=== PATIENT | female | born 1940 | race Caucasian/White ===

== ENCOUNTER 2018-06-08 14:09 | Inpatient (IN) | payer MEDICARE, MEDICAID ==
[~2018-06-08] VITALS: Ht 165.1 cm; Wt 59.4 kg
[2018-06-08] MEDS ORDERED: ATOR10TA PO (14:20)
[2018-06-08] MEDS ORDERED: MIRT15TA PO (14:20)
[2018-06-08] MEDS ORDERED: GLYC-22 RC (14:20)
[2018-06-08] MEDS ORDERED: FURO-145 PO (14:20)
[2018-06-08] MEDS ORDERED: OXCA150T5 PO (14:20)
[2018-06-08] MEDS ORDERED: DOCU-141 PO (14:20)
[2018-06-08] MEDS ORDERED: LACT10SO PO (14:20)
[2018-06-08] MEDS ORDERED: LEVO75TA7 PO (14:20)
[2018-06-08] MEDS ORDERED: SERT25TA PO (14:20)
[2018-06-08] MEDS ORDERED: BISA10SU8 RC (14:20)
[2018-06-08] MEDS ORDERED: QUET25TA PO ×2 (14:20)
[2018-06-08] MEDS ORDERED: ACET-868 PO (14:20)
[2018-06-08] MEDS ORDERED: CHOL100044 PO (14:20)
[2018-06-08] MEDS ORDERED: MEMA10TA PO (14:20)
[2018-06-08 14:25] LABS: BASOPHILS # (AUTO) 0.1 /CMM (0.0-0.2); BASOPHILS % (AUTO) 1.6 % (0.0-2.0); EOSINOPHILS % (AUTO) 2.2 % (0.0-6.0); HEMATOCRIT 30 % (33-45); HEMOGLOBIN 9.3 g/dL (11.5-14.8); MEAN CORPUSCULAR HEMOGLOBIN 25 PG (26.0-33.0); MEAN CORPUSCULAR HGB CONC 32 g/dl (31.0-36.0); MEAN CORPUSCULAR VOLUME 80 fL (82-100); MONOCYTES # (AUTO) 0.7 /CMM (0.1-1.30); MONOCYTES % (AUTO) 9.2 % (2.0-12.0); NEUTROPHILS # (AUTO) 5.3 /CMM (1.8-8.9); PLATELET COUNT (AUTO) 193 /CMM (150-450); RDW COEFFICIENT OF VARIATION 15.4 (11.5-15.0); RED BLOOD CELL COUNT(AUTO) 3.69 MIL/uL (4.0-5.2); WHITE BLOOD COUNT (AUTO) 7.3 K/uL (4.3-11.0)
[2018-06-08 14:35] LABS: CALCIUM, SERUM 8.9 mg/dL (8.5-10.1); CARBON DIOXIDE 29 mmol/L (21-32); CHLORIDE 105 mmol/L (98-107); CREATININE 0.7 mg/dL (0.6-1.3); GLUCOSE 119 mg/dL (74-106); POTASSIUM 3.6 mmol/L (3.5-5.1); SODIUM SERUM 142 mmol/L (136-145); UREA NITROGEN, BLOOD 19 mg/dL (7-18)
[2018-06-08 14:41] LABS: ALANINE AMINOTRANSFERASE 15 U/L (12-78); ALBUMIN 3.2 g/dL (3.4-5.0); ALCOHOL, BLOOD < 3 mg/dL (0-0); ALKALINE PHOSPHATASE 116 U/L (46-116); ASPARTATE AMINOTRANSFERASE 20 U/L (15-37); BILIRUBIN,DIRECT 0.1 mg/dL (0.0-0.2); BILIRUBIN,TOTAL 0.2 mg/dL (0.2-1.0); TOTAL PROTEIN, SERUM 7.6 g/dL (6.4-8.2)
[2018-06-08 14:43] LABS: ACETAMINOPHEN 0 ug/ml (10-30)
[2018-06-08] MEDS ORDERED: OLANZAPINE 10 MG VIAL IM ONE ×2 (14:44→15:00)
--- NOTE | 2018-06-08 14:46 | NUR ---
CALLED FOR GPS
--- NOTE | 2018-06-08 14:57 | NUR ---
BIB [facility] HERE FOR PSYCH EVAL FOR INCREASING AGGRESSION. SEEN & EVAL'D BY DR. TAPIA. PT HITTING, SCREAMING. PLACED ON 2 WY HARD RESTRAINTS ON BILL WRISTS PER ERMD ORDER, SKIN INTACT WITH GOOD CSM. MEDICATED PER ERMD ORDER. PLACED ON MONITOR, NSR, NO ECTOPY NOTED. AWAITING ADMISSION TO PSYCH UNIT.
--- NOTE | 2018-06-08 15:12 | NUR ---
CALLED [facility]ZA [phone] SHE SAID ETA IS 60 MINS
[2018-06-08 15:26] LABS: LYMPHOCYTES % (MANUAL) 11 % (16-48); MONOCYTES % (MANUAL) 8 % (0-11.0); NEUTROPHILS % (MANUAL) 79 (42-76); REACTIVE LYMPHOCYTES 2 % (0-0)
--- NOTE | 2018-06-08 15:30 | NUR ---
PT CALM, RESTING, BILL WRIST SKIN INTACT WITH GOOD CSM, NAD NOTED @ THIS TIME.
[2018-06-08] MEDS ORDERED: LACTULOSE 10 G/15 ML UDC (PYXIS) PO PRN (16:30)
[2018-06-08] MEDS ORDERED: BISACODYL SUPP (10 MG) 10 MG/SUPP.RECT SUPP.RECT RC PRN (16:30)
[2018-06-08] MEDS: FUROSEMIDE 20 MG TABLET PO SCH (18:00)
[2018-06-08] MEDS: MEMANTINE HCL 5 MG TABLET PO SCH (18:00)
--- NOTE | 2018-06-08 18:09 | NUR ---
GPS/RN RECEIVED PT FROM ER ON 5149 HOLD FOR GD AND DTO. [facility] SHE WAS AGGRESSIVE AND REFUSING CARE. ADMITTING ORDERS FROM DR ASCENCIO RECEIVED AND CARRIED OUT. DR BURGESS AWARE OF ADMISSION AND RECONCILED THE HOME MEDS ALREADY. PT IS RESISTIVE TO CARE, REFUSED MEDS, SKIN ASSESSMENT USING PROFANE LANGUAGE.
--- NOTE | 2018-06-08 18:28 | NUR ---
DR. ASCENCIO MADE AWARE OF THE ADMISSION AND WITH ORDERS.
[2018-06-08] MEDS ORDERED: ACETAMINOPHEN 325 MG TABLET PO PRN (18:30)
[2018-06-08] MEDS ORDERED: QUETIAPINE FUMARATE 25 MG TABLET PO PRN (18:30)
[2018-06-08] MEDS: OXCARBAZEPINE 150 MG TABLET PO SCH (21:00)
[2018-06-08] MEDS: DOCUSATE SODIUM 100 MG CAPSULE PO SCH (21:00)
[2018-06-08] MEDS: ATORVASTATIN 10 MG TABLET PO SCH (22:00)
[2018-06-09] MEDS: LEVOTHYROXINE SODIUM 75 MCG TABLET PO SCH (07:30)
[2018-06-09 08:47] VITALS: BP 120/58
[2018-06-09] MEDS: CHOLECALCIFEROL 1,000 UNIT TABLET (VIT D3) PO SCH (09:00)
[2018-06-09] MEDS: MEMANTINE HCL 5 MG TABLET PO SCH ×2 (09:00→17:00)
[2018-06-09] MEDS: DOCUSATE SODIUM 100 MG CAPSULE PO SCH ×2 (09:00→21:00)
[2018-06-09] MEDS: OXCARBAZEPINE 150 MG TABLET PO SCH ×2 (13:00→21:00)
[2018-06-09 16:00] VITALS: BP 130/61
[2018-06-09] MEDS: OLANZAPINE 5 MG/TAB.RAPDIS PO SCH (17:30)
[2018-06-09] MEDS: FUROSEMIDE 20 MG TABLET PO SCH (18:00)
[2018-06-09] MEDS: DIVALPROEX SODIUM 125 MG CAP.SPRINK PO SCH (21:00)
[2018-06-09] MEDS: ATORVASTATIN 10 MG TABLET PO SCH (21:56)
[2018-06-09] MEDS: MIRTAZAPINE 15 MG TABLET PO SCH (21:57)
--- NOTE | 2018-06-09 23:49 | NUR ---
GPS RN NOTES, PT. REFUSED ALL NIGHT MEDS, AND REFUSED VITAL SIGNS ,ENCOURAGED , EXPLIANED RISKS AND BENEFITS STILL REFUSED, PT. BEHAVIOR VERY UNCOOPERTIVE , WILL CONTINUE TO ENCOURAGED TO COMPLY WITH MD REGIMEN.
[2018-06-10] MEDS: OXCARBAZEPINE 150 MG TABLET PO SCH ×3 (05:00→21:00)
[2018-06-10] MEDS: LEVOTHYROXINE SODIUM 75 MCG TABLET PO SCH (07:30)
[2018-06-10] MEDS: DOCUSATE SODIUM 100 MG CAPSULE PO SCH ×2 (08:40→21:00)
[2018-06-10] MEDS: DIVALPROEX SODIUM 125 MG CAP.SPRINK PO SCH ×2 (08:40→21:00)
[2018-06-10] MEDS: OLANZAPINE 5 MG/TAB.RAPDIS PO SCH ×2 (08:41→17:00)
[2018-06-10] MEDS: CHOLECALCIFEROL 1,000 UNIT TABLET (VIT D3) PO SCH (08:41)
[2018-06-10] MEDS: MEMANTINE HCL 5 MG TABLET PO SCH ×2 (08:41→17:00)
--- NOTE | 2018-06-10 12:30 | NUR ---
GPS/RN PATIENT IS ADAMANTLY REFUSING CARE, SPITTING, CURSING AND COMBATIVE WITH STAFF.WILL CONTINUE TO ENCOURAGE TO ALLOW STAFF TO ASSIST WITH CARE.
--- NOTE | 2018-06-10 13:30 | NUR ---
GPS/RN PATIENT REFUSED ALL A.M. MEDICATION X 3, EXPLAINED RISKS AND BENEFITS, WILL CONTINUE TO ENCOURAGE TO COMPLY WITH MD REGIMEN. Addendum: 06/10/18 at 1333 by ROBB AMEZQUITA RN 0900 MEDICATIONS.
--- NOTE | 2018-06-10 13:33 | NUR ---
GPS/RN PATIENT ADAMANTLY REFUSED TRILEPTAL 450 MG X 3, EXPLAINED RISKS AND BENEFITS, WILL CONTINUE TO ENCOURAGE TO COMPLY WITH MD REGIMEN.
[2018-06-10 16:00] VITALS: BP 131/58
--- NOTE | 2018-06-10 16:21 | NUR ---
Initial Discharge Plan: Pt currently came from [facility] located at [address] [place] [address]; ([phone]). Per pt, she would like to return there upon discharge. SW will work with the pt and the MD regarding appropriate discharge planning. SW will form a safe and proper discharge.
--- NOTE | 2018-06-10 16:22 | NUR ---
MALLY called the pt's daughter, Avril Paniagua ([phone]), and left a voicemail stating that the initial discharge plan needs to be discussed.
[2018-06-10] MEDS: FUROSEMIDE 20 MG TABLET PO SCH (18:00)
--- NOTE | 2018-06-10 18:06 | NUR ---
GPS/RN PATIENT REFUSED ALL 1700,1800 MEDICATION X 3, EXPLAINED RISKS AND BENEFITS, WILL CONTINUE TO ENCOURAGE TO COMPLY WITH MD REGIMEN.
--- NOTE | 2018-06-10 18:15 | NUR ---
GPS/RN PATIENT NOTED WITH L HAND SKIN TEAR, REFUSED PICTURE.
--- NOTE | 2018-06-10 19:00 | NUR ---
GPS/FINISHING MACHINE OPERATOR AUTOMATIC CONSULT ORDERED FOR L HAND SKIN TEAR.
[2018-06-10] MEDS: ATORVASTATIN 10 MG TABLET PO SCH (21:35)
[2018-06-10] MEDS: MIRTAZAPINE 15 MG TABLET PO SCH (21:35)
--- NOTE | 2018-06-10 21:35 | NUR ---
GPS-RN PATIENT REFUSED ALL PO SCHEDULED MEDS. DESPITE OF EDUCATION AND ENCOURAGEMENT PROVIDED. PATIENT STATED I DON'T NEED ANY MEDICATION. OFFERED X3, PATIENT STILL REFUSED.
[2018-06-11] MEDS: OXCARBAZEPINE 150 MG TABLET PO SCH ×2 (05:00→13:00)
--- NOTE | 2018-06-11 05:26 | NUR ---
GPS-RN PATIENT REFUSED SCHEDULED MED TRILEPTAL. DESPITE OF EDUCATION AND ENCOURAGEMENT PROVIDED. OFFERED X3, PATIENT STILL REFUSED.
[2018-06-11] MEDS: LEVOTHYROXINE SODIUM 75 MCG TABLET PO SCH (07:30)
[2018-06-11] MEDS: OLANZAPINE 5 MG/TAB.RAPDIS PO SCH ×2 (08:20→17:00)
[2018-06-11] MEDS: CHOLECALCIFEROL 1,000 UNIT TABLET (VIT D3) PO SCH (08:20)
[2018-06-11] MEDS: DIVALPROEX SODIUM 125 MG CAP.SPRINK PO SCH ×2 (08:20→21:00)
[2018-06-11] MEDS: DOCUSATE SODIUM 100 MG CAPSULE PO SCH ×2 (08:20→21:00)
[2018-06-11] MEDS: MEMANTINE HCL 5 MG TABLET PO SCH ×2 (08:20→17:00)
--- NOTE | 2018-06-11 09:58 | NUR ---
WOUND CARE CONSULT: PT PRESENTS WITH LEFT HAND SKIN TEAR. PT VERY ANGRY. RECOMMENDATIONS MADE FOR WOUND CARE AND DISCUSSED WITH NURSING STAFF. WILL SEE PRN.
[2018-06-11] MEDS: BACITRACIN/POLYMYXIN B 15 GM TUBE TP SCH (10:30)
[2018-06-11] MEDS: FUROSEMIDE 20 MG TABLET PO SCH (17:59)
--- NOTE | 2018-06-11 21:29 | NUR ---
GPS-RN PATIENT REFUSED ALL PO SCHEDULED MEDS. DESPITE OF EDUCATION AND ENCOURAGEMENT PROVIDED. PATIENT STATED I DON'T NEED ANY MEDICATION, I AM DOING FINE. OFFERED X3, PATIENT STILL REFUSED.
[2018-06-11] MEDS: ATORVASTATIN 10 MG TABLET PO SCH (21:31)
[2018-06-11] MEDS: MIRTAZAPINE 15 MG TABLET PO SCH (21:31)
[2018-06-11 22:49] LABS: CHOLESTEROL 142 mg/dL (<200); HDL CHOLESTEROL 51 mg/dL (40-60); LDL 79 mg/dL (0-99); TRIGLYCERIDES 56 mg/dL (30-150)
[2018-06-11 23:01] LABS: ALANINE AMINOTRANSFERASE 16 U/L (12-78); ALBUMIN 3.3 g/dL (3.4-5.0); ALKALINE PHOSPHATASE 102 U/L (46-116); ASPARTATE AMINOTRANSFERASE 18 U/L (15-37); BILIRUBIN,TOTAL 0.2 mg/dL (0.2-1.0); CALCIUM, SERUM 9.1 mg/dL (8.5-10.1); CARBON DIOXIDE 26 mmol/L (21-32); CHLORIDE 108 mmol/L (98-107); CREATININE 0.7 mg/dL (0.6-1.3); GLUCOSE 97 mg/dL (74-106); POTASSIUM 4.9 mmol/L (3.5-5.1); SODIUM SERUM 143 mmol/L (136-145); TOTAL PROTEIN, SERUM 7.6 g/dL (6.4-8.2); UREA NITROGEN, BLOOD 28 mg/dL (7-18)
[2018-06-12] MEDS: LEVOTHYROXINE SODIUM 75 MCG TABLET PO SCH (07:30)
[2018-06-12] MEDS: DOCUSATE SODIUM 100 MG CAPSULE PO SCH ×2 (09:00→21:00)
[2018-06-12] MEDS: CHOLECALCIFEROL 1,000 UNIT TABLET (VIT D3) PO SCH (09:00)
[2018-06-12] MEDS: DIVALPROEX SODIUM 125 MG CAP.SPRINK PO SCH ×3 (09:00→21:00)
[2018-06-12] MEDS: OLANZAPINE 5 MG/TAB.RAPDIS PO SCH ×2 (09:00→17:00)
[2018-06-12] MEDS: MEMANTINE HCL 5 MG TABLET PO SCH ×2 (09:00→17:00)
[2018-06-12] MEDS: BACITRACIN/POLYMYXIN B 15 GM TUBE TP SCH (09:00)
--- NOTE | 2018-06-12 10:20 | NUR ---
GPS RN NOTE: RECEIVED PATIENT IN ROOM,ALERT AND ORIENTED X1-2,VERBALLY RESPONSIVE,S AGITATED,REFUSED MEDICATION,REFUSED VS, REFUSED TO TAKE A SHOWER , AWARE ASHLEY FILED. FALL PRECAUTIONS IMPLEMENTED NO DISTRESS NOTED , WILL CONTINUE TO MONITOR Q 15 MIN FOR SAFETY AND BEHAVIOR.
--- NOTE | 2018-06-12 11:59 | NUR ---
[facility][phone][facility] and spoke to Suzy from administration. Suzy stated that she spoke to her advanced nursing professor and that the pt can return to their facility when she is cleared for discharge. MALLY stated that she would call back once there is a discharge date.
--- NOTE | 2018-06-12 12:02 | NUR ---
MALLY called the psychiatrist, Dr. Carlson ([phone]) and informed him that the pt can return to her previous facility when he thinks that she is ready for discharge.
--- NOTE | 2018-06-12 12:04 | NUR ---
MALLY called the pt's daughter, Avril Paniagua ([phone]), and left a voicemail stating that the pt will return to [facility] when she is cleared for discharge.
[2018-06-12] MEDS: FUROSEMIDE 20 MG TABLET PO SCH (17:52)
[2018-06-12] MEDS: MIRTAZAPINE 15 MG TABLET PO SCH (21:09)
[2018-06-12] MEDS: ATORVASTATIN 10 MG TABLET PO SCH (21:09)
--- NOTE | 2018-06-12 21:09 | NUR ---
GPS-RN PATIENT REFUSED ALL PO SCHEDULED MEDS. DESPITE OF EDUCATION AND ENCOURAGEMENT PROVIDED. PATIENT STATED I DON'T NEED ANY MEDICATION. OFFERED X3, PATIENT STILL REFUSED.
[2018-06-13] MEDS: LEVOTHYROXINE SODIUM 75 MCG TABLET PO SCH (07:30)
[2018-06-13] MEDS: DOCUSATE SODIUM 100 MG CAPSULE PO SCH ×2 (09:00→21:00)
[2018-06-13] MEDS: BACITRACIN/POLYMYXIN B 15 GM TUBE TP SCH (09:00)
[2018-06-13] MEDS: MEMANTINE HCL 5 MG TABLET PO SCH ×2 (09:00→16:33)
[2018-06-13] MEDS: OLANZAPINE 5 MG/TAB.RAPDIS PO SCH ×2 (09:00→16:33)
[2018-06-13] MEDS: CHOLECALCIFEROL 1,000 UNIT TABLET (VIT D3) PO SCH (09:00)
[2018-06-13] MEDS: DIVALPROEX SODIUM 125 MG CAP.SPRINK PO SCH ×3 (09:00→21:00)
--- NOTE | 2018-06-13 09:00 | NUR ---
GPS/RN PATIENT REFUSED ALL A.M. MEDICATION X 3, EXPLAINED RISKS AND BENEFITS, WILL CONTINUE TO ENCOURAGE TO COMPLY WITH MD REGIMEN.
--- NOTE | 2018-06-13 10:00 | NUR ---
GPS/RN PATIENT REFUSED WOUND TREATMENT X 3, EXPLAINED RISKS AND BENEFITS, WILL CONTINUE TO ENCOURAGE TO COMPLY WITH MD REGIMEN AND ALLOW STAFF TO PROVIDE CARE.
--- NOTE | 2018-06-13 13:30 | NUR ---
GPS/RN PATIENT REFUSED DEPAKOTE 125MG X 3, EXPLAINED RISKS AND BENEFITS, WILL CONTINUE TO ENCOURAGE TO COMPLY WITH MD REGIMEN.
--- NOTE | 2018-06-13 15:21 | NUR ---
PT. REFUSED FOR V/S CHECKED, EXPLAINED ON THE IMPORTANCE AND STILL REFUSING AND SAID I DON'T NEED IT. DR. ASCENCIO MADE AWARE OF THE PC HEARING AND REISE HEARING SCHEDULED FOR TOMORROW (06/14/18) AT 1130 AM.
[2018-06-13 17:20] LABS: BASOPHILS % (AUTO) 0.3 % (0.0-2.0); EOSINOPHILS % (AUTO) 1.8 % (0.0-6.0); HEMATOCRIT 30 % (33-45); HEMOGLOBIN 9.3 g/dL (11.5-14.8); LYMPHOCYTES # (AUTO) 1.5 /CMM (0.8-4.8); LYMPHOCYTES % (AUTO) 17.4 % (20.0-44.0); MEAN CORPUSCULAR HEMOGLOBIN 25 PG (26.0-33.0); MEAN CORPUSCULAR HGB CONC 31 g/dl (31.0-36.0); MEAN CORPUSCULAR VOLUME 81 fL (82-100); MONOCYTES # (AUTO) 0.8 /CMM (0.1-1.30); MONOCYTES % (AUTO) 9.4 % (2.0-12.0); NEUTROPHILS # (AUTO) 6.1 /CMM (1.8-8.9); NEUTROPHILS % (AUTO) 71.1 % (43.0-81.0); PLATELET COUNT (AUTO) 214 /CMM (150-450); RDW COEFFICIENT OF VARIATION 16.8 (11.5-15.0); WHITE BLOOD COUNT (AUTO) 8.6 K/uL (4.3-11.0)
[2018-06-13] MEDS: FUROSEMIDE 20 MG TABLET PO SCH (17:30)
[2018-06-13 17:36] LABS: CALCIUM, SERUM 8.8 mg/dL (8.5-10.1); CARBON DIOXIDE 30 mmol/L (21-32); CHLORIDE 107 mmol/L (98-107); CREATININE 0.7 mg/dL (0.6-1.3); GLUCOSE 141 mg/dL (74-106); POTASSIUM 3.6 mmol/L (3.5-5.1); SODIUM SERUM 141 mmol/L (136-145); UREA NITROGEN, BLOOD 27 mg/dL (7-18)
--- NOTE | 2018-06-13 17:36 | NUR ---
GPS/RN PATIENT REFUSED ALL MEDICATION THROUGHOUT SHIFT. STATED THAT " I DON'T TAKE MEDICATION", EXPLAINED RISKS AND BENEFITS, WILL CONTINUE TO ENCOURAGE TO COMPLY WITH MD REGIMEN.
--- NOTE | 2018-06-13 20:00 | NUR ---
GPS/AGRICULTURAL ENGINEERING TECHNOLOGIST NOTES: PT. REFUSED HS VS. OFFERED 3X. EXPLAINED RISK AND BENEFITS. PT. STILL REFUSED. NO DISTRESS NOTED. WILL CONTINUE TO MONITOR.
[2018-06-13] MEDS: MIRTAZAPINE 15 MG TABLET PO SCH (21:24)
[2018-06-13] MEDS: ATORVASTATIN 10 MG TABLET PO SCH (21:24)
--- NOTE | 2018-06-13 21:24 | NUR ---
GPS/TELECOMMUNICATIONS CONSULTANT NOTES: PT. REFUSED ALL HS MEDS. OFFERED 3X. EXPLAINED RISK AND BENEFITS. PT. STILL REFUSED.
[2018-06-14 01:40] LABS: CHOLESTEROL 147 mg/dL (<200); HDL CHOLESTEROL 47 mg/dL (40-60); LDL 84 mg/dL (0-99); THYROID STIMULATING HORMONE 5.075 uIU/mL (0.358-3.74); TRIGLYCERIDES 107 mg/dL (30-150)
--- NOTE | 2018-06-14 06:49 | NUR ---
GPS/FERTILIZER PROCESSING SUPERVISOR NOTES: NOTICED FOUL SMELLING URINE. CALLED DR. LANE. ORDERED UA.
[2018-06-14] MEDS: LEVOTHYROXINE SODIUM 75 MCG TABLET PO SCH (07:30)
[2018-06-14] MEDS: DOCUSATE SODIUM 100 MG CAPSULE PO SCH ×2 (09:00→21:38)
[2018-06-14] MEDS: OLANZAPINE 5 MG/TAB.RAPDIS PO SCH ×2 (09:00→17:00)
[2018-06-14] MEDS: BACITRACIN/POLYMYXIN B 15 GM TUBE TP SCH (09:00)
[2018-06-14] MEDS: MEMANTINE HCL 5 MG TABLET PO SCH ×2 (09:00→17:00)
[2018-06-14] MEDS: CHOLECALCIFEROL 1,000 UNIT TABLET (VIT D3) PO SCH (09:00)
[2018-06-14] MEDS: DIVALPROEX SODIUM 125 MG CAP.SPRINK PO SCH ×3 (09:00→21:38)
--- NOTE | 2018-06-14 09:57 | NUR ---
GPS/RN-NOTES PATIENT REFUSED ALL 0900AM MEDICATIONS DESPITE ENCOURAGEMENT. PATIENT GETS ANGRY AND YELLS AT THE RESCUE WORKER. OFFERED X3.
--- NOTE | 2018-06-14 10:30 | NUR ---
Pt's stepdashante, Jo Ann ([phone]), called the SW and asked for an update regarding a discharge date to which the SW stated that she would inform her about when she has one. Addendum: 06/14/18 at 1032 by SHAY BAL Avril
[2018-06-14] MEDS ORDERED: OLANZAPINE 10 MG VIAL IM PRN ×2 (11:30→12:00)
[2018-06-14] MEDS: OLANZAPINE 10 MG VIAL IM PRN ×2 (12:31→18:06)
--- NOTE | 2018-06-14 12:40 | NUR ---
GPS/RN-NOTES OFFERED ZYPREXA 2.5MG P.O FOR THE LAST TIME BUT PATIENT STATED" I WILL NOT TAKE ANY MEDICATIONS AT ALL". EXPLAINED THAT FOR EVERY REFUSAL OF THE PILL THE TRAINING AND DEVELOPMENT PROFESSIONAL WILL GIVE ZYPREXA 2.5MG IM. PATIENT START YELLING USING FOUL LANGUAGES. PATIENT WAS ALREADY RIESE. ZYPREXA 2.5MG IM GIVEN ORDERED.
[2018-06-14] MEDS: FUROSEMIDE 20 MG TABLET PO SCH (18:00)
--- NOTE | 2018-06-14 18:16 | NUR ---
GPS/RN-NOTES PATIENT REFUSED ALL 1700 MEDICATIONS INCLUDING ZYPREXA 2.5MG P.O PATIENT STATED" I WILL NOT TAKE ANY PILLS". ZYPREXA 2.5MG IM. GIVEN ORDERED.
--- NOTE | 2018-06-14 18:31 | NUR ---
GPS/RN-NOTES NO URINE COLLECTED THIS SHIFT ,PATIENT WAS UNCOOPERATIVE .WILL ENDORSE TO THE INCOMING NURSE FOR THE URINE COLLECTION AND THE CONTINUITY OF CARE.
[2018-06-14] MEDS: MIRTAZAPINE 15 MG TABLET PO SCH (21:38)
[2018-06-14] MEDS: ATORVASTATIN 10 MG TABLET PO SCH (21:38)
[2018-06-15] MEDS: LEVOTHYROXINE SODIUM 75 MCG TABLET PO SCH (07:30)
[2018-06-15] MEDS: CHOLECALCIFEROL 1,000 UNIT TABLET (VIT D3) PO SCH (09:00)
[2018-06-15] MEDS: MEMANTINE HCL 5 MG TABLET PO SCH ×2 (09:00→17:00)
[2018-06-15] MEDS: DOCUSATE SODIUM 100 MG CAPSULE PO SCH ×2 (09:00→21:00)
[2018-06-15] MEDS: DIVALPROEX SODIUM 125 MG CAP.SPRINK PO SCH ×3 (09:00→21:00)
[2018-06-15] MEDS: OLANZAPINE 5 MG/TAB.RAPDIS PO SCH ×3 (09:00→20:26)
[2018-06-15] MEDS: BACITRACIN/POLYMYXIN B 15 GM TUBE TP SCH (09:00)
[2018-06-15] MEDS: OLANZAPINE 10 MG VIAL IM PRN ×2 (09:20→17:34)
--- NOTE | 2018-06-15 09:47 | NUR ---
GPS/RN-NOTES PATIENT REFUSED ALL 0900 AM MEDICATIONS INCLUDING ZYPREXA 2.5MG P.O. PATIENT SCREAM AND YELLS WITH THE ELEMENTARY EDUCATION TUTOR. PATIENT STATED" GET OUT,I WILL NOT TAKE MEDICATIONS OR PILLS". ZYPREXA 2.5MG IM GIVEN ORDERED.
--- NOTE | 2018-06-15 10:00 | NUR ---
GPS/RN-NOTES MAYTE SLATER MADE AWARE OF PATIENT REFUSAL OF MEDICATIONS. REFUSE TO GIVE URINE SPECIMEN.
[2018-06-15] MEDS: FUROSEMIDE 20 MG TABLET PO SCH (17:36)
--- NOTE | 2018-06-15 17:36 | NUR ---
GPS/RN-NOTES PATIENT REFUSED ALL 1700 MEDICATIONS INCLUDING ZYPREXA 2.5MG P.O. ZYPREXA 2.5MG IM. GIVEN ORDERED.
--- NOTE | 2018-06-15 19:15 | NUR ---
RN NOTES RECEIVED PT IN BED, CONFUSED AND DISORGANIZED, VERBALLY RESPONSIVE WITH NO SOB, BREATHING EVEN AND UNLABORED AND IN NO ACUTE DISTRESS. ALL PATIENT'S NEEDS ATTENDED TO AT THIS TIME. WILL CONTINUE TO MONITOR PT.
[2018-06-15] MEDS ORDERED: OLANZAPINE 10 MG VIAL IM PRN (19:30)
[2018-06-15 20:00] VITALS: BP 102/96
--- NOTE | 2018-06-15 20:26 | NUR ---
RN NOTES PT SEEN AND EXAMINED BY DR. ASCENCIO WITH NEW ZYPREXA ORDERS. PER MD, DO NOT ADMINISTER ZYPREXA @ 2100 TONIGHT AND START ZYPREXA IN THE AM PT ALREADY RECEIVED 2 DOSES TODAY.
[2018-06-15] MEDS: ATORVASTATIN 10 MG TABLET PO SCH (21:18)
[2018-06-15] MEDS: MIRTAZAPINE 15 MG TABLET PO SCH (21:18)
[2018-06-16] MEDS: LEVOTHYROXINE SODIUM 75 MCG TABLET PO SCH (07:30)
[2018-06-16] MEDS: OLANZAPINE 5 MG/TAB.RAPDIS PO SCH ×3 (08:45→21:00)
[2018-06-16] MEDS: DIVALPROEX SODIUM 125 MG CAP.SPRINK PO SCH ×4 (08:45→21:00)
[2018-06-16] MEDS: BACITRACIN/POLYMYXIN B 15 GM TUBE TP SCH (08:46)
[2018-06-16] MEDS: DOCUSATE SODIUM 100 MG CAPSULE PO SCH ×3 (08:46→21:00)
[2018-06-16] MEDS: MEMANTINE HCL 5 MG TABLET PO SCH ×2 (08:46→16:21)
[2018-06-16] MEDS: CHOLECALCIFEROL 1,000 UNIT TABLET (VIT D3) PO SCH (08:46)
[2018-06-16] MEDS: Z GUARD REMEDY 2 OZ OINT TP SCH (12:09)
[2018-06-16 16:06] VITALS: BP 103/59
[2018-06-16] MEDS: FUROSEMIDE 20 MG TABLET PO SCH (18:11)
[2018-06-16 19:46] VITALS: BP 98/51
[2018-06-16] MEDS: MIRTAZAPINE 15 MG TABLET PO SCH (22:00)
[2018-06-16] MEDS: ATORVASTATIN 10 MG TABLET PO SCH (22:00)
--- NOTE | 2018-06-16 22:00 | NUR ---
RN NOTES, PATIENT REFUSED ALL NIGHT MEDICATIONS, INCLUDING ZYPREXA PO, OFFERED 3X, EDUCATION PROVIDED REGARDING RISKS AND BENEFITS, AND STILL REFUSED, ZYPREXA IM ADMINISTERED ORDERED, WILL CONTINUE TO MONITOR CLOSELY.
[2018-06-17] MEDS: LEVOTHYROXINE SODIUM 75 MCG TABLET PO SCH (07:30)
[2018-06-17] MEDS: DOCUSATE SODIUM 100 MG CAPSULE PO SCH ×2 (08:44→21:00)
[2018-06-17] MEDS: DIVALPROEX SODIUM 125 MG CAP.SPRINK PO SCH ×3 (08:44→21:06)
[2018-06-17] MEDS: CHOLECALCIFEROL 1,000 UNIT TABLET (VIT D3) PO SCH (08:44)
[2018-06-17] MEDS: MEMANTINE HCL 5 MG TABLET PO SCH ×2 (08:44→16:03)
[2018-06-17] MEDS: OLANZAPINE 5 MG/TAB.RAPDIS PO SCH (08:46)
[2018-06-17] MEDS: BACITRACIN/POLYMYXIN B 15 GM TUBE TP SCH (08:53)
[2018-06-17] MEDS: Z GUARD REMEDY 2 OZ OINT TP SCH (08:54)
--- NOTE | 2018-06-17 10:37 | NUR ---
SW returned the pt's daughter's phone call, Avril Paniagua ([phone]), and discussed how the pt's is now entering hospice and whether or not the pt should know. The daughter stated that she wants the SW to let the psychiatrist know but wants to wait a bit longer before telling the pt.
[2018-06-17 16:00] VITALS: BP 107/61
[2018-06-17] MEDS: FUROSEMIDE 20 MG TABLET PO SCH (17:44)
[2018-06-17 20:49] VITALS: BP 100/48
[2018-06-17] MEDS ORDERED: OLANZAPINE 10 MG VIAL IM PRN (21:00)
[2018-06-17] MEDS: ATORVASTATIN 10 MG TABLET PO SCH (21:05)
[2018-06-17] MEDS: MIRTAZAPINE 15 MG TABLET PO SCH (21:06)
[2018-06-17] MEDS: OLANZAPINE 2.5 MG TABLET PO SCH (21:06)
[2018-06-18 07:47] LABS: CALCIUM, SERUM 8.9 mg/dL (8.5-10.1); CARBON DIOXIDE 28 mmol/L (21-32); CHLORIDE 105 mmol/L (98-107); CREATININE 0.6 mg/dL (0.6-1.3); GLUCOSE 92 mg/dL (74-106); POTASSIUM 3.6 mmol/L (3.5-5.1); SODIUM SERUM 143 mmol/L (136-145); UREA NITROGEN, BLOOD 27 mg/dL (7-18)
[2018-06-18 08:00] VITALS: BP 100/52
[2018-06-18] MEDS: MEMANTINE HCL 5 MG TABLET PO SCH ×2 (08:51→17:27)
[2018-06-18] MEDS: CHOLECALCIFEROL 1,000 UNIT TABLET (VIT D3) PO SCH (08:51)
[2018-06-18] MEDS: LEVOTHYROXINE SODIUM 75 MCG TABLET PO SCH (08:51)
[2018-06-18] MEDS: DOCUSATE SODIUM 100 MG CAPSULE PO SCH ×2 (08:51→21:25)
[2018-06-18] MEDS: DIVALPROEX SODIUM 125 MG CAP.SPRINK PO SCH ×3 (08:51→21:24)
[2018-06-18] MEDS: OLANZAPINE 5 MG/TAB.RAPDIS PO SCH (08:52)
[2018-06-18] MEDS: BACITRACIN/POLYMYXIN B 15 GM TUBE TP SCH (08:53)
[2018-06-18] MEDS: Z GUARD REMEDY 2 OZ OINT TP SCH (08:53)
[2018-06-18 16:00] VITALS: BP 138/65
[2018-06-18] MEDS: FUROSEMIDE 20 MG TABLET PO SCH (17:27)
[2018-06-18 20:10] VITALS: BP 122/65
[2018-06-18] MEDS: OLANZAPINE 2.5 MG TABLET PO SCH (21:24)
[2018-06-18] MEDS: ATORVASTATIN 10 MG TABLET PO SCH (21:25)
[2018-06-18] MEDS: MIRTAZAPINE 15 MG TABLET PO SCH (21:25)
[2018-06-19] MEDS: OLANZAPINE 5 MG/TAB.RAPDIS PO SCH (09:17)
[2018-06-19] MEDS: DIVALPROEX SODIUM 125 MG CAP.SPRINK PO SCH ×3 (09:17→21:21)
[2018-06-19] MEDS: MEMANTINE HCL 5 MG TABLET PO SCH ×2 (09:17→16:53)
[2018-06-19] MEDS: CHOLECALCIFEROL 1,000 UNIT TABLET (VIT D3) PO SCH (09:17)
[2018-06-19] MEDS: LEVOTHYROXINE SODIUM 75 MCG TABLET PO SCH (09:17)
[2018-06-19] MEDS: Z GUARD REMEDY 2 OZ OINT TP SCH (09:17)
[2018-06-19] MEDS: BACITRACIN/POLYMYXIN B 15 GM TUBE TP SCH (09:17)
[2018-06-19] MEDS: DOCUSATE SODIUM 100 MG CAPSULE PO SCH ×2 (09:17→21:21)
[2018-06-19 10:32] LABS: BASOPHILS % (AUTO) 0.2 % (0.0-2.0); EOSINOPHILS % (AUTO) 2.1 % (0.0-6.0); HEMATOCRIT 33 % (33-45); HEMOGLOBIN 9.9 g/dL (11.5-14.8); LYMPHOCYTES # (AUTO) 1.8 /CMM (0.8-4.8); LYMPHOCYTES % (AUTO) 22.4 % (20.0-44.0); MEAN CORPUSCULAR HEMOGLOBIN 24 PG (26.0-33.0); MEAN CORPUSCULAR HGB CONC 30 g/dl (31.0-36.0); MEAN CORPUSCULAR VOLUME 80 fL (82-100); MONOCYTES # (AUTO) 0.7 /CMM (0.1-1.30); MONOCYTES % (AUTO) 9.2 % (2.0-12.0); NEUTROPHILS # (AUTO) 5.3 /CMM (1.8-8.9); NEUTROPHILS % (AUTO) 66.1 % (43.0-81.0); PLATELET COUNT (AUTO) 217 /CMM (150-450); RDW COEFFICIENT OF VARIATION 16.7 (11.5-15.0); RED BLOOD CELL COUNT(AUTO) 4.06 MIL/uL (4.0-5.2)
[2018-06-19 10:44] LABS: CALCIUM, SERUM 8.9 mg/dL (8.5-10.1); CARBON DIOXIDE 29 mmol/L (21-32); CHLORIDE 103 mmol/L (98-107); CREATININE 0.7 mg/dL (0.6-1.3); GLUCOSE 90 mg/dL (74-106); SODIUM SERUM 141 mmol/L (136-145); UREA NITROGEN, BLOOD 32 mg/dL (7-18)
--- NOTE | 2018-06-19 12:03 | NUR ---
Avril Paniagua ([phone]), pt's stepdaughter, called the SW and stated that the pt's has entered hospice and can no longer visit her. The stepdaughter stated that she will visit the pt tomorrow to inform her of this news and asked the SW to be present.
[2018-06-19 16:00] VITALS: BP 118/56
[2018-06-19] MEDS: FUROSEMIDE 20 MG TABLET PO SCH (17:20)
[2018-06-19 20:07] VITALS: BP 98/54
[2018-06-19] MEDS: OLANZAPINE 2.5 MG TABLET PO SCH (21:22)
[2018-06-19] MEDS: ATORVASTATIN 10 MG TABLET PO SCH (21:22)
[2018-06-19] MEDS: MIRTAZAPINE 15 MG TABLET PO SCH (21:23)
[2018-06-19 23:00] VITALS: BP 103/62
[2018-06-20] MEDS: DOCUSATE SODIUM 100 MG CAPSULE PO SCH ×2 (08:53→22:19)
[2018-06-20] MEDS: CHOLECALCIFEROL 1,000 UNIT TABLET (VIT D3) PO SCH (08:53)
[2018-06-20] MEDS: LEVOTHYROXINE SODIUM 75 MCG TABLET PO SCH (08:53)
[2018-06-20] MEDS: DIVALPROEX SODIUM 125 MG CAP.SPRINK PO SCH ×3 (08:53→22:19)
[2018-06-20] MEDS: BACITRACIN/POLYMYXIN B 15 GM TUBE TP SCH (08:53)
[2018-06-20] MEDS: MEMANTINE HCL 5 MG TABLET PO SCH ×2 (08:53→17:04)
[2018-06-20] MEDS: OLANZAPINE 5 MG/TAB.RAPDIS PO SCH (08:53)
[2018-06-20] MEDS: Z GUARD REMEDY 2 OZ OINT TP SCH (08:54)
[2018-06-20 13:02] LABS: ALANINE AMINOTRANSFERASE 10 U/L (12-78); ASPARTATE AMINOTRANSFERASE 19 U/L (15-37)
[2018-06-20 13:05] LABS: VALPROIC ACID 65 ug/mL (50-100)
--- NOTE | 2018-06-20 13:56 | NUR ---
MALLY called Suzy ([phone]) from [facility] and informed her that the pt is being discharged tomorrow. Suzy asked for the MALLY to fax over a recent clinical to the fax number: [phone].
--- NOTE | 2018-06-20 15:14 | NUR ---
MALLY sent Suzy ([phone]) from [facility] a fax of a recent clinical to the fax number: [phone].
[2018-06-20] MEDS: FUROSEMIDE 20 MG TABLET PO SCH (17:12)
[2018-06-20 20:00] VITALS: BP 122/56
[2018-06-20 20:17] VITALS: BP 122/56
[2018-06-20] MEDS: ATORVASTATIN 10 MG TABLET PO SCH (22:19)
[2018-06-20] MEDS: OLANZAPINE 2.5 MG TABLET PO SCH (22:19)
[2018-06-20] MEDS: MIRTAZAPINE 15 MG TABLET PO SCH (22:19)
[2018-06-21 08:00] VITALS: BP 119/63
[2018-06-21] MEDS: DIVALPROEX SODIUM 125 MG CAP.SPRINK PO SCH (09:03)
[2018-06-21] MEDS: LEVOTHYROXINE SODIUM 75 MCG TABLET PO SCH (09:04)
[2018-06-21] MEDS: DOCUSATE SODIUM 100 MG CAPSULE PO SCH (09:04)
[2018-06-21] MEDS: MEMANTINE HCL 5 MG TABLET PO SCH (09:04)
[2018-06-21] MEDS: CHOLECALCIFEROL 1,000 UNIT TABLET (VIT D3) PO SCH (09:04)
[2018-06-21] MEDS: OLANZAPINE 5 MG/TAB.RAPDIS PO SCH (09:04)
[2018-06-21] MEDS: BACITRACIN/POLYMYXIN B 15 GM TUBE TP SCH (09:09)
[2018-06-21] MEDS: Z GUARD REMEDY 2 OZ OINT TP SCH (09:10)
--- NOTE | 2018-06-21 09:30 | NUR ---
DR. ASCENCIO GAVE AN ORDER TO D/C HOLD AND D/C TO [facility] AND TO FOLLOW UP WITH PSYCH AND MEDICAL DOCTORS AND RECONCILED THE MEDS.
--- NOTE | 2018-06-21 11:30 | NUR ---
DISCHARGE NOTES PAT[facility]. PATIENT A/O X2/3. PATIENT REFUSED SI/HI./AVH AT THIS TIME OF DISCHARGE. MED RECONCILIATION AND DISCHARGE ORDER REVIEWED AND EXPLAINED TO. REPORT GIVEN HOSE TENDER CARMELINA. RN VERBALIZED UNDERSTANDING. BELONGING RETURNED BACK TO THE PATIENT. PATIENT WILL FOLLOW REHAB PSYCHIATRIST DR ASCENCIO, AND STUDENT LIAISON OFFICER DR HARVEY. FAMILY AWARE OF DISCHARGE PLANING. PATIENT SIGN PAPERWORK. BUT REFUSED PICTURE TO BE TAKEN. PATIENT BROADCAST TRAFFIC COORDINATOR BY AMBULANCE.
--- NOTE | 2018-06-21 12:59 | NUR ---
Discharge Note: Pt was discharged to [facility] (SNF) located at [address] [place] [address]; . Pt was transported via [facility] (Trip #[id number]) at 11AM. Pts stepdaughter, Avril Paniagua ([phone]) was notified of this placement and has agreed to it. Upon discharge, the pt appeared to be in a dysphoric mood because she received news that her had just entered hospice. She presented with a sad and flat affect. Upon discharge, the pt stated that she does not have suicidal or homicidal ideation or auditory and visual hallucinations. Pt will be under the care of her psychiatrist, Dr. Carlson, located at [address], [place] [address]; [phone] and her core analyst, Dr. Mcguire, [address] [place], [address], [place] [address]; [phone].
== END 2018-06-21 11:30 | DRG 885 ==
LOC: ER 14:11 → GPS 15:40
PROVIDERS: ADMIT Psychiatry & Neurology Psychiatry; ATTEND Psychiatry & Neurology Psychiatry
DX: F39 Unspecified mood [affective] disorder (principal); F05 Delirium due to known physiological condition; N17.0 Acute kidney failure with tubular necrosis; G93.49 Other encephalopathy; F02.81 Dementia in other diseases classified elsewhere, unspecified severity, with behavioral disturbance; I50.32 Chronic diastolic (congestive) heart failure; E44.1 Mild protein-calorie malnutrition; E78.5 Hyperlipidemia, unspecified; E03.9 Hypothyroidism, unspecified; K21.9 Gastro-esophageal reflux disease without esophagitis; G30.9 Alzheimer's disease, unspecified; Z88.0 Allergy status to penicillin; Z88.4 Allergy status to anesthetic agent; Z88.1 Allergy status to other antibiotic agents; Z91.010 Allergy to peanuts; Z79.899 Other long term (current) drug therapy; D50.9 Iron deficiency anemia, unspecified; Z91.14 Patient's other noncompliance with medication regimen
CPT/HCPCS: 36415; 80048-TC; 80053-TC; 80061-TC; 80076-TC; 80164-TC; 84443-TC; 84450-TC; 84460-TC; 85025-TC; 87081-TC; A4606; G0480; J3490; Z7610